=== PATIENT | male | born 1940 | race Caucasian/White ===

== ENCOUNTER 2018-08-16 04:15 | Inpatient (IN) ==
--- NOTE | 2018-08-16 04:30 | ERNOTE ---
Dizziness ER Record Time Seen by Provider: 08/16/18 04:15 Source: patient Exam Limitations: no limitations Immunizations: IMMUNIZATION HX Immunizations Up to Date Yes History of Influenza Vaccine Yes Hx Pneumococcal Vaccination Yes Allergies/Adverse Reactions: Allergies Allergy/AdvReac Type Severity Reaction Status Date / Time No Known Allergies Allergy Verified 08/16/18 04:19 Home Medications: HOME MEDICATIONS Aspirin [Eloise Chewable] 81 mg PO DAILY 01/13/15 [Last Taken Unknown] Lisinopril [Zestril] 2.5 mg PO DAILY 01/13/15 [Last Taken Unknown] Metoprolol Succinate [Toprol Xl] 25 mg PO DAILY 01/13/15 [Last Taken Unknown] Nitroglycerin 0.4 mg SL Q5M PRN 01/13/15 [Last Taken Unknown] Simvastatin [Zocor] 40 mg PO HS 01/13/15 [Last Taken Unknown] Multivitamin [One Daily Essential] 1 each PO DAILY 03/28/16 [Last Taken Unknown] - History of Present Illness Narrative: PAtient woke up in the night with nausea, vomiting and dizziness, felt hot, but no diaphoresis, denies chest pain or shortness of breath He has a history of CAD, had an LA and stent placed in 2007 (no chest pain at that time only 'sweating in face') Date (Duration): 08/16/18 Time (Timing): 02:00 Associated Symptoms: Present: nausea, vomiting. Absent: hearing loss, ringing/roaring in ear, ear pain, headache, weakness Sense of movement: Present: vague Decreased ability to stand/walk:: Present: off balance Usually:: Present: walks w/o assistance Modifying Factors - (Worsens): Reports: changing position, movement of head Review of Systems - Review of Systems Constitutional: Absent: recent illness, fever EYE: Absent: vision changes ENT: Present: no symptoms reported Respiratory: Absent: shortness of breath Cardiology: Absent: chest pain Gastrointestinal/Abdominal: Present: nausea, vomiting. Absent: diarrhea, abdominal pain Musculoskeletal: Absent: back pain Neurological: Absent: headache, weakness, numbness Medical History (Last Reviewed 08/16/18 @ 04:25 by Laly Denton MD) High cholesterol Hypertension Myocardial infarction Surgical History: Surgical History (Last Reviewed 08/16/18 @ 04:25 by Laly Denton MD) History of artificial heart valve Social History: Preferred Language Pashto Smoking Status Former smoker Psych History No pertinent hx Alcohol Use none No Social History Section defined Physical Exam - Physical Exam General Appearance: Present: wd/wn, alert, no apparent distress, obese Head Exam: Present: normal inspection, no evidence of injury Eye Exam: Normal inspection: bilateral, PERRL: bilateral Ears, Nose, Throat: Present: cerumen impaction - bilateral (removed with currette) Neck: Present: normal inspection, nontender, supple Respiratory: Present: no respiratory distress, normal breath sounds, no accessory muscle use, chest nontender, lungs clear Cardiovascular/Chest: Present: regular rate, rhythm, no murmur Gastrointestinal/Abdominal: Present: normal bowel sounds, nontender, nondistended, soft Extremity Exam: Present: no edema Neurological Exam: Present: alert, oriented, normal mood/affect, no motor/sensory deficits, normal cerebellar test. Absent: facial droop, motor weakness Skin Exam: Present: normal color, warm/dry Progress - Results and Orders Patient's Lab Results:: I have reviewed the patient's lab results. - Vital Signs Patient's Vital Signs:: I have reviewed the patient's vital signs. Vital Signs: Vital Signs 08/16/18 04:16 Temperature 36 C Pulse Rate 59 L Respiratory Rate 18 Blood Pressure 138/72 O2 Sat by Pulse Oximetry 94 - EKG EKG #1 EKG: NSR - sinus bradycardia, other - poor R progression over anterior leads, no acute changes, unchanges from 06/2011 EKG read: Interp. by me - X-Ray X-Ray #1 X-Ray: chest - cardiomegalie, no acute changes Interpretation: Interp. by me X-Ray #2 X-Ray: abdomen - no acute changes Interpretation: Reviewed by me - CT/Ultrasound CT/Ultrasound Narrative: CT head: old strokes, no acute findings - Progress/Reassessment Chief Complaint: Dizziness Progress Note-Subjective: 08/16/18 05:31 patient comfortable while laying in bed patient able to sit up with assistance but leaning to left side and not sitting up straight in spite of coaching starts to complain of dizziness again and vomits brownish liquid 08/16/18 07:00 positive gastrocult most likely due to vomiting due to vertigo and not primary p jono discussed possible admission with patient, patient agreed message to Dr Han 08/16/18 07:[address] Han, okay to admit for observation for vertigo and GI bleed, will repeat troponin as history of prior LA without chest pain and draw serial H/Hs Departure Clinical Impression: Vertigo GI bleed Qualifiers: GI bleed type/associated pathology: unspecified gastrointestinal hemorrhage type Qualified Code(s): K92.2 - Gastrointestinal hemorrhage, unspecified - Departure Disposition: Still a patient Condition: Stable
[2018-08-16] MEDS ORDERED: ONDANSETRON HCL/PF 2 MG/ML VIAL IV ONE (04:31)
[2018-08-16 04:36] LABS: Hematocrit 43.2 % (42.0-52.0); Hemoglobin 14.6 gm/dL (13.5-18.0); Mean Cell Volume 101.2 fl (78-100); Mean Corpuscular Hemoglobin 34.2 pg (27-31); Mean Corpuscular Hgb Conc 33.8 g/dl (32-36); Mean Platelet Volume 9.4 fl (8-11.3); Neutrophil # 6.5 K/mm3 (1.3-6.0); Neutrophil % 79.7 % (42-75.0); Platelet Count 188 K/mm3 (150-450); Red Blood Count 4.27 M/mm3 (4.7-6.0); Red Cell Distribution Width 11.9 % (11.5-14.0); White Blood Count 8.2 K/mm3 (4.0-10.5)
[2018-08-16 04:54] LABS: Albumin * 3.6 gm/dl (3.4-5.0); Anion Gap 12.5 mmol/L (6.8-13.8); BUN/Creatinine Ratio 17.4 (9.0-21.6); Bilirubin, Total 0.3 mg/dL (0.0-1.1); Ca. Corrected For Albumin 9.1 mg/dL (8.4-10.2); Calcium * 9.1 mg/dL (7.9-10.9); Carbon Dioxide 28.4 mmol/L (24-32.6); Potassium 3.9 mmol/L (3.4-4.6); Total Protein 6.9 gm/dL (6.2-8.2)
[2018-08-16 04:57] LABS: Troponin I 0.025 ng/mL (0.00-0.10)
[2018-08-16] MEDS ORDERED: NORMAL SALINE 1,000 ML IV PRN ×2 (07:46→09:15)
[2018-08-16] MEDS ORDERED: PANTOPRAZOLE SODIUM 40 MG in NORMAL SALINE 100 ML IV SCH (08:00)
[2018-08-16] MEDS ORDERED: NORMAL SALINE 1,000 ML IV SCH (08:15)
[2018-08-16 11:01] LABS: Hematocrit 43.5 % (42.0-52.0); Hemoglobin 14.6 gm/dL (13.5-18.0); Mean Cell Volume 102.6 fl (78-100); Mean Corpuscular Hemoglobin 34.4 pg (27-31); Mean Corpuscular Hgb Conc 33.6 g/dl (32-36); Mean Platelet Volume 9.4 fl (8-11.3); Neutrophil # 7.4 K/mm3 (1.3-6.0); Neutrophil % 88.1 % (42-75.0); Platelet Count 151 K/mm3 (150-450); Red Blood Count 4.24 M/mm3 (4.7-6.0); Red Cell Distribution Width 11.9 % (11.5-14.0); White Blood Count 8.4 K/mm3 (4.0-10.5)
[2018-08-16] MEDS: CLOPIDOGREL BISULFATE 75 MG TABLET PO SCH (15:34)
[2018-08-16] MEDS: ONDANSETRON HCL/PF 2 MG/ML VIAL IV SCH ×3 (16:31→22:26)
--- NOTE | 2018-08-16 17:34 | HP ---
Chief Complaint - Chief Complaint Date of Service: 08/16/18 Time of Service: 17:11 Chief Complaint: Vertigo History of Present Illness: 77-year-old man woke to her 2:30 this morning with dizziness. Any small movement made it worse. It was accompanied with nausea and vomiting. It got worse. They called an ambulance, he was brought here for further evaluation. Sequential troponins were normal. He had a previous MD with stent placement, and the only symptom at that time was diaphoresis. He also has a bovine heart valve in place. At the time of admission he was already on low-dose aspirin every day. In the emergency room, he had an occult blood positive stool. The stool was not black and there was no obvious blood in the stool. When he vomited once in the emergency room, the vomitus was brown. According to the emergency room doctor, it was not classic hematemesis. His brain CT was normal. There was also definite signs of left-sided facial weakness and his usual left-sided body weakness was worse. All of these reasons, we obtained an MRI of the brain today. It showed an ischemic cerebellar infarct. At the present time his vertigo is about the same. His nausea is improved with the ondansetron we are giving him. He has no chest pain. Prior to this episode, he is never had vertigo. He is extremely hard of hearing in each year. Medical History (Last Updated 08/16/18 @ 08:49 by Naomy Chu RN) High cholesterol Hypertension Myocardial infarction Onset Date: ~2007 Surgical History: Surgical History (Last Updated 08/16/18 @ 17:16 by Roverto Castelan MD) History of artificial heart valve (Acute) Onset Date: ~2015 H/O heart artery stent Onset Date: ~2007 Hx of appendectomy Onset Date: ~1977 Family History: Family History (Last Updated 08/16/18 @ 08:48 by Naomy Chu RN) Father Emphysema of lung Mother Heart disease Social History: Patient Lives/Resources Home Utilized Preferred Language Colombian Do you have any mandaeism or Yes: Presbretarian cultural preference? Smoking Status Former smoker Have you smoked in the past 12 No months Psych History No pertinent hx Alcohol Use none No Social History Section defined Review Of Systems (GEN) - Review of Systems Generalized/Overall Review: Present: Weakness, Malaise EENTM: Present: Other - He has a white spot on the right face near his anabaptist area. The new growth within the last month or so behind his left ear. He is markedly hard of hearing. He does not wear hearing aids. Respiratory: Absent: Cough, Shortness of Breath, Orthopnea Cardiac: Absent: Chest Pain, Palpitations Abdominal: Present: Nausea, Vomiting, Other - 1 positive Hemoccult stool in the emergency room. Genitourinary: Absent: Burning, Urgency, Frequency Musculoskeletal: Present: Joint Pain - All joints, but especially both knees. No historical indicators of claudication., Back Pain Neurological: Present: Weakness - Left face and Left side. Vertigo. Homonymous hemianopsia (towards the left). Skin: Present: Lesions - Growth behind right ear, Change in Color - White area right anabaptist Endocrine: Present: Intolerance to Cold, Intolerance to Heat Misc: All systems neg except as marked - He states he had a carotid ultrasound perhaps 2 months ago at the [facility]. He does not know the results. His last echocardiogram was quite some time ago. Immunizations: IMMUNIZATION HX Immunizations Up to Date Yes History of Influenza Vaccine Yes Hx Pneumococcal Vaccination Yes Allergies/Adverse Reactions: Allergies Allergy/AdvReac Type Severity Reaction Status Date / Time No Known Allergies Allergy Verified 08/16/18 08:50 Home Medications: HOME MEDICATIONS Aspirin [Eloise Chewable] 81 mg PO DAILY 01/13/15 [Last Taken Unknown] Lisinopril [Zestril] 2.5 mg PO DAILY 01/13/15 [Last Taken Unknown] Metoprolol Succinate [Toprol Xl] 25 mg PO DAILY 01/13/15 [Last Taken Unknown] Nitroglycerin 0.4 mg SL Q5M PRN 01/13/15 [Last Taken Unknown] Simvastatin [Zocor] 40 mg PO HS 01/13/15 [Last Taken Unknown] Multivitamin [One Daily Essential] 1 each PO DAILY 03/28/16 [Last Taken Unknown] Isosorbide Dinitrate 30 mg PO DAILY 08/16/18 [Last Taken Unknown] Exam - Exam Vital Signs: Vital Signs - Last Taken Temp 36.6 C 08/16/18 13:45 Pulse 65 08/16/18 13:45 Resp 18 08/16/18 13:45 BP 156/86 H 08/16/18 13:45 Pulse Ox 95 08/16/18 13:45 Constitutional: Present: Alert, Oriented x3, Cooperative, Well developed, Well nourished ENT Exam: Present: normal ENT inspection, hard of hearing Eye Exam: bilateral eye: normal inspection, PERRL, EOMI, other - homonymous hemianopsia Neck: Present: non-tender, normal inspection. Absent: lymphadenopathy (R), lymphadenopathy (L), thyromegaly Back Exam: Present: normal inspection, no CVA tenderness, no vertebral tenderness Breasts: Present: Exam deferred Respiratory: Present: lungs clear, no respiratory distress Cardiovascular/Chest: Present: regular rate, rhythm, no edema, no gallop, no JVD, no murmur - Soft systolic Peripheral Pulses: carotid (R): 1+ - no bruit, carotid (L): 1+ - no bruit, femoral (R): 1+, femoral (L): 1+ Abdomen: Present: Normal bowel sounds, soft, nontender, nondistended, no hepatospenomegaly, no masses /Rectal: Present: Exam deferred Extremity: Present: normal range of motion, normal inspection, no pedal edema Skin Exam: Present: normal color, warm/dry, no cyanosis, other - 1 cm brownish growth behind right ear. Neurologic: Present: alert, normal mood/affect, oriented x 3, abnormal cerebellar tests, abnormal gait, facial droop, motor weakness Appearance: Present: appropriate appearance, appropriate insight, neat Eye contact: Present: cooperative, good eye contact, other - Somewhat slurred speech Thoughts: Present: normal thought pattern. Absent: incoherent Diagnostic Studies: Abnormal Lab Results 08/16/18 08/16/18 08/16/18 Range/Units 04:30 04:30 05:30 RBC 4.27 L (4.7-6.0) M/mm3 MCV 101.2 H (78-100) fl MCH 34.2 H (27-31) pg Neutrophils % 79.7 H (42-75.0) % Lymphocytes % 10.5 L (20-51) % Neutrophils # 6.5 H (1.3-6.0) K/mm3 Lymphocytes # 0.86 L (1.5-3.5) k/mm3 Random Glucose 201 H (70-110) mg/dL ALT 16 L (19-67) U/L Gastric Occult Blood Positive H 08/16/18 Range/Units 10:58 RBC 4.24 L (4.7-6.0) M/mm3 MCV 102.6 H (78-100) fl MCH 34.4 H (27-31) pg Neutrophils % 88.1 H (42-75.0) % Lymphocytes % 5.6 L (20-51) % Neutrophils # 7.4 H (1.3-6.0) K/mm3 Lymphocytes # 0.47 L (1.5-3.5) k/mm3 Random Glucose (70-110) mg/dL ALT (19-67) U/L Gastric Occult Blood Laboratory Results WBC 8.4 K/mm3 (4.0-10.5) 08/16/18 10:58 RBC 4.24 M/mm3 (4.7-6.0) L 08/16/18 10:58 Hgb 14.6 gm/dL (13.5-18.0) 08/16/18 10:58 Hct 43.5 % (42.0-52.0) 08/16/18 10:58 MCV 102.6 fl (78-100) H 08/16/18 10:58 MCH 34.4 pg (27-31) H 08/16/18 10:58 MCHC 33.6 g/dl (32-36) 08/16/18 10:58 RDW 11.9 % (11.5-14.0) 08/16/18 10:58 Plt Count 151 K/mm3 (150-450) 08/16/18 10:58 MPV 9.4 fl (8-11.3) 08/16/18 10:58 Immature Gran % (Auto) 0.20 % (0.001-0.429) 08/16/18 10:58 Immature Gran # (Auto) 0.02 K/mm3 (0.000-0.0310) 08/16/18 10:58 Neutrophils % 88.1 % (42-75.0) H 08/16/18 10:58 Lymphocytes % 5.6 % (20-51) L 08/16/18 10:58 Monocytes % 5.6 % (0.0-9) 08/16/18 10:58 Eosinophils % 0.1 % (0.0-3.0) 08/16/18 10:58 Basophils % 0.4 % (0.0-1.0) 08/16/18 10:58 Nucleated RBC % 0.0 k/mm3 (0-1) 08/16/18 10:58 Neutrophils # 7.4 K/mm3 (1.3-6.0) H 08/16/18 10:58 Lymphocytes # 0.47 k/mm3 (1.5-3.5) L 08/16/18 10:58 Monocytes # 0.5 k/mm3 (0.0-1.0) 08/16/18 10:58 Eosinophils # 0.0 k/mm3 (0.0-0.7) 08/16/18 10:58 Absolute Basophils 0.0 k/mm3 (0.0-0.1) 08/16/18 10:58 Sodium 140 mmol/L (132-142) 08/16/18 04:30 Plasma Sodium 142 mmol/L (130-142) 08/16/18 04:30 Potassium 3.9 mmol/L (3.4-4.6) 08/16/18 04:30 Chloride 103 mmol/L (97-106) 08/16/18 04:30 Carbon Dioxide 28.4 mmol/L (24-32.6) 08/16/18 04:30 Anion Gap 12.5 mmol/L (6.8-13.8) 08/16/18 04:30 BUN 15 mg/dL (6-23) 08/16/18 04:30 Creatinine 0.86 mg/dL (0.4-1.4) 08/16/18 04:30 Est GFR (Non-Af Amer) 91 mL/min (60-130) 08/16/18 04:30 BUN/Creatinine Ratio 17.4 (9.0-21.6) 08/16/18 04:30 Random Glucose 201 mg/dL (70-110) H 08/16/18 04:30 Calcium 9.1 mg/dL (7.9-10.9) 08/16/18 04:30 Calcium Adj for Albumin 9.1 mg/dL (8.4-10.2) 08/16/18 04:30 Total Bilirubin 0.3 mg/dL (0.0-1.1) 08/16/18 04:30 AST 19 U/L (0-48) 08/16/18 04:30 ALT 16 U/L (19-67) L 08/16/18 04:30 Alkaline Phosphatase 59 U/L (50-170) 08/16/18 04:30 Troponin I 0.027 ng/mL (0.00-0.10) 08/16/18 10:58 Total Protein 6.9 gm/dL (6.2-8.2) 08/16/18 04:30 Albumin 3.6 gm/dl (3.4-5.0) 08/16/18 04:30 Gastric Occult Blood Positive H 08/16/18 05:30 Assessment/Plan - Narrative Narrative: No gross blood from GI tract. Hemoccult positive blood in the emergency room. He had a fairly recent carotid ultrasound at the [facility]. Tomorrow morning we will obtain the report. Looking for blood clot in the heart, we will do an echocardiogram tomorrow. Given the acute stroke, we will monitor him carefully in the hospital, looking for possible deterioration. This would be either from an extension of the stroke, or for edema surrounding the area stroke. Physical therapy will continue in the form of stroke rehabilitation. We will switch his aspirin to Plavix, because on low-dose aspirin he had this stroke regardless. We will repeat blood work in the morning. We will give him symptomatic treatment for the nausea and vomiting. The entire situation was discussed tonight and then with his . Questions were answered. They expressed understanding. When he is out of the hospital, he will need referral to clinical transplant coordinator for the lesion behind his right ear. When he is sufficiently recovered, he will need an MRA of the vertebrobasilar system. - Assessment/Plan (1) Vertigo Problem: Acute (2) Acute arterial ischemic stroke, vertebrobasilar, cerebellar Problem: Acute (3) Vomiting Problem: Acute Qualifiers: Vomiting type: unspecified Vomiting Intractability: non-intractable Nausea presence: with nausea Qualified Code(s): R11.2 - Nausea with vomiting, unspecified (4) GI bleed Problem: Acute Qualifiers: GI bleed type/associated pathology: unspecified gastrointestinal hemorrhage type Qualified Code(s): K92.2 - Gastrointestinal hemorrhage, unspecified (5) Benign essential hypertension Problem: Chronic (6) Coronary artery disease Problem: Chronic Qualifiers: Coronary Disease-Associated Artery/Lesion type: unspecified vessel or lesion type [place] vs. transplanted heart: [place] heart Associated angina: without angina Qualified Code(s): I25.10 - Atherosclerotic heart disease of [place] coronary artery without angina pectoris (7) Hyperlipidemia type II Problem: Chronic (8) Lesion of external ear Problem: Acute (9) History of artificial heart valve Problem: Acute
--- NOTE | 2018-08-16 17:35 | PN ---
Laurie Note - Interim Date: 08/16/18 Time: 17:34 Narrative: 08/16/18 17:34 We discussed VTE prophylaxis with him and his . Because of the Hemoccult positive stool in the ER, we chose blood thinning methods to decrease the chance of blood clot.
[2018-08-16] MEDS: TAMSULOSIN HCL 0.4 MG CAP.SR.24H PO SCH (22:25)
[2018-08-17] MEDS: ONDANSETRON HCL/PF 2 MG/ML VIAL IV SCH ×6 (02:47→23:49)
[2018-08-17 05:33] LABS: Hematocrit 40.3 % (42.0-52.0); Hemoglobin 13.6 gm/dL (13.5-18.0); Mean Cell Volume 101.5 fl (78-100); Mean Corpuscular Hemoglobin 34.3 pg (27-31); Mean Corpuscular Hgb Conc 33.7 g/dl (32-36); Mean Platelet Volume 9.4 fl (8-11.3); Neutrophil # 13.1 K/mm3 (1.3-6.0); Neutrophil % 86.4 % (42-75.0); Platelet Count 163 K/mm3 (150-450); Red Blood Count 3.97 M/mm3 (4.7-6.0); Red Cell Distribution Width 11.9 % (11.5-14.0); White Blood Count 15.2 K/mm3 (4.0-10.5)
[2018-08-17 05:42] LABS: Albumin * 3.2 gm/dl (3.4-5.0); Anion Gap 11.9 mmol/L (6.8-13.8); BUN/Creatinine Ratio 13.1 (9.0-21.6); Ca. Corrected For Albumin 8.9 mg/dL (8.4-10.2); Calcium * 8.6 mg/dL (7.9-10.9); Carbon Dioxide 27.9 mmol/L (24-32.6); Potassium 3.8 mmol/L (3.4-4.6); Total Protein 6.2 gm/dL (6.2-8.2)
[2018-08-17] MEDS ORDERED: NORMAL SALINE 1,000 ML IV SCH (07:15)
--- NOTE | 2018-08-17 07:33 | PN ---
Subjective - Date and Time Seen Date: 08/17/18 Time: 07:22 Subjective Narrative: Patient reports no change. Nurse reports that staff observed that he is definitely weaker on the left side with more facial droop. He is having more trouble standing or moving around. Last evening, rough lung sounds were noticed. The on-call doctor stopped his IV. I/O not complete on chart. No fever has been noted. Somewhat elevated white count at about 15,000 was noted this morning. Staff observed that his speech is more difficult to understand. Objective - Review of Systems Generalized/Overall Review: Reports: Weakness EENTM: Denies: Eye Pain, Blurred Vision Respiratory: Reports: Cough. Denies: Orthopnea Cardiac: Denies: Chest Pain, Edema Abdominal: Reports: Nausea. Denies: Vomiting, Melena, Bright blood from rectum Genitourinary Symptoms: Denies: Burning, Urgency Musculoskeletal Complaints: Reports: Joint Pain. Denies: Back Pain Neurological: Reports: Weakness, Pre-existing Deficit. Denies: Headache Skin: Denies: Dryness, Rash Endocrine: Reports: Intolerance to Cold, Intolerance to Heat Misc: All systems neg except as marked - Vitals Vitals: Last Vital Signs Temp 37.2 C 08/17/18 04:00 Pulse 90 08/17/18 04:00 Resp 18 08/17/18 04:00 BP 156/80 H 08/17/18 04:00 Pulse Ox 90 L 08/17/18 04:00 - Abnormal Lab Findings Abnormal Lab Findings: Abnormal Lab Results 08/16/18 08/17/18 08/17/18 Range/Units 10:58 05:10 05:10 WBC 15.2 H D (4.0-10.5) K/mm3 RBC 4.24 L 3.97 L (4.7-6.0) M/mm3 Hct 40.3 L (42.0-52.0) % MCV 102.6 H 101.5 H (78-100) fl MCH 34.4 H 34.3 H (27-31) pg Immature Gran # (Auto) 0.06 H (0.000-0.0310) K/mm3 Neutrophils % 88.1 H 86.4 H (42-75.0) % Lymphocytes % 5.6 L 5.0 L (20-51) % Neutrophils # 7.4 H 13.1 H (1.3-6.0) K/mm3 Lymphocytes # 0.47 L 0.76 L (1.5-3.5) k/mm3 Monocytes # 1.2 H (0.0-1.0) k/mm3 Random Glucose 144 H (70-110) mg/dL ALT 12 L (19-67) U/L Albumin 3.2 L (3.4-5.0) gm/dl - Exam Constitutional: Present: Alert, Oriented x3, Cooperative, Well developed, Well nourished, No distress ENT Exam: Present: normal ENT inspection. Absent: hearing grossly normal Neck: Present: normal inspection. Absent: lymphadenopathy (R), lymphadenopathy (L), thyromegaly Breasts: Present: Exam deferred Respiratory: Present: no respiratory distress, rhonchi. Absent: rales Cardiovascular/Chest: Present: regular rate, rhythm, no gallop, no JVD, no m urmur Abdomen: Present: soft, nontender, nondistended, no hepatospenomegaly, no masses. Absent: tender /Rectal: Present: Exam deferred Extremity: Present: non-tender, normal inspection Skin Exam: Present: normal color, warm/dry, no cyanosis Lymphatic: Present: no adenopathy Neurologic: Present: alert, normal mood/affect, oriented x 3, abnormal gait, facial droop, motor weakness. Absent: normal cerebellar test Appearance: Present: appropriate appearance, neat Eye contact: Present: cooperative, good eye contact. Absent: normal speech Thoughts: Present: normal thought pattern. Absent: incoherent Assessment/Plan Plan Narrative: He is by staff report worse. He now has abnormal lung sounds plus his speech is harder to understand, plus his left side is weaker, and he is having more difficulty with standing or moving. To my exam I am not entirely convinced that his left side is weaker. He does have facial droop and his left upper eyelid comes to the level of his inferior pupil. I did not get him up to walk him this morning. I am concerned that his stroke may be producing increasing brain edema. Her that reason we are going to do an urgent CT this morning. The thought of the on-call doctor last night was that he had too much fluid on board. I heard no rales this morning but many rhonchi. He has been vomiting, so I'm concerned about aspiration pneumonia. Plus his white blood count is increased over yesterday's to about 15,000. There is a slight left shift. We will resume his IV at a rate of 10 ML's per hour pending the results of his chest x-ray. We are looking either pulmonary edema or pneumonia or both. We will also do a BNP this morning. We will do a CBC and a BMP tomorrow morning. We will continue with physical therapy and current medications. Depending on his course today, we may need to transfer him to a higher level of care., Providing he and his are willing to do that. Prognosis is guarded at the present time. - Problems/Diagnosis (1) Vertigo Problem: Acute (2) Acute arterial ischemic stroke, vertebrobasilar, cerebellar Problem: Acute (3) Vomiting Problem: Acute Qualifiers: Vomiting type: unspecified Vomiting Intractability: non-intractable Nausea presence: with nausea Qualified Code(s): R11.2 - Nausea with vomiting, unspecified (4) GI bleed Problem: Acute Qualifiers: GI bleed type/associated pathology: unspecified gastrointestinal hemorrhage type Qualified Code(s): K92.2 - Gastrointestinal hemorrhage, unspecified (5) Benign essential hypertension Problem: Chronic (6) Coronary artery disease Problem: Chronic Qualifiers: Coronary Disease-Associated Artery/Lesion type: unspecified vessel or lesion type [place] vs. transplanted heart: [place] heart Associated angina: without angina Qualified Code(s): I25.10 - Atherosclerotic heart disease of [place] coronary artery without angina pectoris (7) Hyperlipidemia type II Problem: Chronic (8) Lesion of external ear Problem: Acute (9) History of artificial heart valve Problem: Acute
--- NOTE | 2018-08-17 08:20 | PN ---
Progess Note - Interim Date: 08/17/18 Time: 08:18 Narrative: 08/17/18 08:18 I read the CXR just now. Radiologist has not. Left lung opacity concerning for pneumonia. BNP is elevated most likely due to chronic heart disease.
--- NOTE | 2018-08-17 08:25 | PN ---
Progess Note - Interim Date: 08/17/18 Time: 08:24 Narrative: 08/17/18 08:[address] head, stable acute infarct anterior left cerebellum, no signs of edema
--- NOTE | 2018-08-17 08:54 | PN ---
Progess Note - Interim Date: 08/17/18 Time: 08:53 Narrative: 08/17/18 08:53 Radiologist's interp of CXR is consistent with early aspiration pneumonia. Have started zosyn.
[2018-08-17] MEDS: SACCHAROMYCES BOULARDII 250 MG CAPSULE PO SCH ×2 (09:11→20:27)
[2018-08-17] MEDS: PIPERACILLIN SODIUM/TAZOBACTAM 3.375 GM in DEXTROSE 5 % IN WATER 100 ML IV SCH ×6 (09:11→23:50)
[2018-08-17] MEDS: PANTOPRAZOLE SODIUM 40 MG in NORMAL SALINE 100 ML IV SCH (09:12)
[2018-08-17] MEDS: CLOPIDOGREL BISULFATE 75 MG TABLET PO SCH (09:12)
[2018-08-17] MEDS ORDERED: NORMAL SALINE 1,000 ML IV PRN (09:15)
[2018-08-17] MEDS: TAMSULOSIN HCL 0.4 MG CAP.SR.24H PO SCH (16:59)
[2018-08-17] MEDS ORDERED: TAMSULOSIN HCL 0.4 MG CAP.SR.24H PO SCH (21:50)
[2018-08-18] MEDS: ONDANSETRON HCL/PF 2 MG/ML VIAL IV SCH ×6 (03:54→23:50)
[2018-08-18 05:25] LABS: Hematocrit 38.2 % (42.0-52.0); Mean Cell Volume 101.1 fl (78-100); Mean Corpuscular Hemoglobin 34.4 pg (27-31); Mean Platelet Volume 9.9 fl (8-11.3); Neutrophil # 6.1 K/mm3 (1.3-6.0); Neutrophil % 75.9 % (42-75.0); Platelet Count 158 K/mm3 (150-450); Red Blood Count 3.78 M/mm3 (4.7-6.0); Red Cell Distribution Width 11.9 % (11.5-14.0)
[2018-08-18 05:30] LABS: Anion Gap 10.9 mmol/L (6.8-13.8); BUN/Creatinine Ratio 8.5 (9.0-21.6); Calcium * 8.7 mg/dL (7.9-10.9); Carbon Dioxide 28.5 mmol/L (24-32.6); Estimated Creat Clear 69.4; Potassium 3.4 mmol/L (3.4-4.6)
[2018-08-18] MEDS: CLOPIDOGREL BISULFATE 75 MG TABLET PO SCH (08:16)
[2018-08-18] MEDS: SACCHAROMYCES BOULARDII 250 MG CAPSULE PO SCH ×2 (08:16→20:32)
[2018-08-18] MEDS: PIPERACILLIN SODIUM/TAZOBACTAM 3.375 GM in DEXTROSE 5 % IN WATER 100 ML IV SCH ×6 (08:31→23:59)
--- NOTE | 2018-08-18 09:44 | PN ---
Subjective - Date and Time Seen Date: 08/18/18 Time: 09:34 Subjective Narrative: Patient reports improvement. Nurse reports his weakness is about the same. With physical therapy this morning he was able to walk 3 steps forward and 3 steps backward without feeling like he was going to fall His cough has improved. He has no fever. His O2 sats are better than yesterday. Chest x-ray showed early pneumonia on the left side and I suspect aspiration pneumonia. Although his BNP was elevated his timings have not and do not support a diagnosis of breathing problems related to. His white blood count has returned to normal with the help of her working to see if he will qualify for inpatient rehabilitation in [place]. I discussed this at length with Iftikhar. He understands and thinks that inpatient rehabilitation would be a good idea. His was not present at the time of my visit this morning. Objective - Review of Systems Generalized/Overall Review: Reports: Weakness, Malaise EENTM: Reports: Other - No sore throat. Denies: Eye Pain, Blurred Vision, Ear Pain, Throat Pain Respiratory: Reports: Cough. Denies: Shortness of Breath, Orthopnea, Wheezing Cardiac: Denies: Chest Pain, Edema Abdominal: Denies: Nausea, Vomiting, Abdominal Pain Genitourinary Symptoms: Reports: Frequency - He had urinary retention yesterday, so we placed a Fowler catheter. He feels much better with the Fowler catheter in place.. Denies: Hematuria Musculoskeletal Complaints: Reports: Joint Pain, Back Pain Neurological: Reports: Weakness, Pre-existing Deficit, Other - Speech has improved but is still somewhat difficult to understand. Skin: Denies: Dryness, Lesions, Rash Endocrine: Reports: Intolerance to Cold, Intolerance to Heat Misc: All systems neg except as marked - Vitals Vitals: Last Vital Signs Temp 36.5 C 08/18/18 06:54 Pulse 74 08/18/18 06:54 Resp 18 08/18/18 06:54 BP 131/74 08/18/18 06:54 Pulse Ox 93 08/18/18 06:54 - Abnormal Lab Findings Abnormal Lab Findings: Abnormal Lab Results 08/18/18 08/18/18 Range/Units 05:00 05:00 RBC 3.78 L (4.7-6.0) M/mm3 Hgb 13.0 L (13.5-18.0) gm/dL Hct 38.2 L (42.0-52.0) % MCV 101.1 H (78-100) fl MCH 34.4 H (27-31) pg Neutrophils % 75.9 H (42-75.0) % Lymphocytes % 11.3 L (20-51) % Monocytes % 10.5 H (0.0-9) % Neutrophils # 6.1 H (1.3-6.0) K/mm3 Lymphocytes # 0.91 L (1.5-3.5) k/mm3 BUN/Creatinine Ratio 8.5 L (9.0-21.6) Random Glucose 114 H (70-110) mg/dL - Exam Constitutional: Present: Alert, Oriented x3, Cooperative, Well developed, Well nourished, No distress ENT Exam: Present: normal ENT inspection, hearing grossly normal Neck: Present: normal inspection, other - No JVD. Absent: thyromegaly Respiratory: Present: rhonchi. Absent: rales, wheezing Cardiovascular/Chest: Present: normal peripheral pulses, regular rate, rhythm, no chest tenderness, no gallop, no murmur Abdomen: Present: Normal bowel sounds, soft, nontender, nondistended, no hepatospenomegaly /Rectal: Present: Exam deferred Extremity: Present: normal inspection, no calf tenderness Skin Exam: Present: normal color, warm/dry Lymphatic: Present: no adenopathy Neurologic: Present: abnormal gait, facial droop, motor weakness Appearance: Present: appropriate appearance, appropriate insight, neat Eye contact: Present: cooperative, good eye contact. Absent: normal speech Thoughts: Present: normal thought pattern, normal mood /affect Cauti Physician Documentation - Urinary Catheter Management Urethral (Fowler) Date of Insertion: 08/17/18 Time of Insertion: 14:40 Assessment/Plan Plan Narrative: We will continue the present treatment including IV antibiotics. He has not been vomiting for the last 24 hours or so. Dietitian recommends mechanical soft diet, however the patient wants to try a regular diet. We acquiesced to his wishes. Doing well enough that he doesn't need any lab work again at the present time. He has really had nothing more in the way of bowel movements, so the chance of him having significant bleeding from his lower GI tract or upper GI tract is minimal. For this reason we will now start Lovenox prophylactically. We will continue PT here. We will continue to work on finding rehabilitation at a higher level of care. - Problems/Diagnosis (1) Vertigo Problem: Acute (2) Acute arterial ischemic stroke, vertebrobasilar, cerebellar Problem: Acute (3) Vomiting Problem: Acute Qualifiers: Vomiting type: unspecified Vomiting Intractability: non-intractable Nausea presence: with nausea Qualified Code(s): R11.2 - Nausea with vomiting, unspecified (4) GI bleed Problem: Acute Qualifiers: GI bleed type/associated pathology: unspecified gastrointestinal hemorrhage type Qualified Code(s): K92.2 - Gastrointestinal hemorrhage, unspecified (5) Benign essential hypertension Problem: Chronic (6) Coronary artery disease Problem: Chronic Qualifiers: Coronary Disease-Associated Artery/Lesion type: unspecified vessel or lesion type Craig vs. transplanted heart: [place]' heart Associated angina: without angina Qualified Code(s): I25.10 - Atherosclerotic heart disease of [place] coronary artery without angina pectoris (7) Hyperlipidemia type II Problem: Chronic (8) Lesion of external ear Problem: Acute (9) History of artificial heart valve Problem: Acute
--- NOTE | 2018-08-18 10:25 | ECHO ---
This report is available in the EMR
[2018-08-18] MEDS: PANTOPRAZOLE SODIUM 40 MG in NORMAL SALINE 100 ML IV SCH (10:27)
[2018-08-18] MEDS: ENOXAPARIN SODIUM 40 MG/0.4 ML SYRG SC SCH (11:21)
[2018-08-18] MEDS: TAMSULOSIN HCL 0.4 MG CAP.SR.24H PO SCH (18:46)
[2018-08-19] MEDS: ONDANSETRON HCL/PF 2 MG/ML VIAL IV SCH ×2 (04:34→07:13)
--- NOTE | 2018-08-19 06:34 | DS ---
Transfer Discharge Summary - Diagnosis(s)/Problems (1) Vertigo Problem: Acute (2) Acute arterial ischemic stroke, vertebrobasilar, cerebellar Problem: Acute (3) Vomiting Problem: Acute (4) GI bleed Problem: Acute (5) Benign essential hypertension Problem: Chronic (6) Coronary artery disease Problem: Chronic (7) Hyperlipidemia type II Problem: Chronic (8) Lesion of external ear Problem: Acute (9) History of artificial heart valve Problem: Chronic (10) History of CVA (cerebrovascular accident) Problem: Chronic - Course Description of Stay: At admission this 77-year-old gentleman was given fluids IV and clear liquids for diet. He was given ondansetron IV for nausea and vomiting. For his the end of the day after admission he was still somewhat nauseated but was not vomiting. The next day he was not nauseated and his vertigo had essentially disappeared. 2 days after admission he developed rhonchi in both sides of the lungs, slight decrease in his O2 sat, and an increase in breathing effort. He also had a white blood cell count elevation to about 15,000. He was generally doing worse. Looking for edema of the brain we did a CT scan which only showed the already known infarct. We also did a chest x-ray, and started him on Zosyn IV for presumed aspiration pneumonia. When the pressures became available, I read the chest x-ray, and it was consistent with left-sided pneumonia. In about 24 hours the white blood count returned to normal, and his general condition improved. Examination he had left-sided weakness and left-sided facial droop. There was some thought that he had worsening of that on admission, but it is more reasonable that it was due to a previous stroke and not this one. Yesterday he wanted to have a regular diet which we provided and which cause no problems. He continued to have problems with speech standing and ambulation. He would benefit from inpatient repair and which is more intense, so yesterday I made arrangements with Dr. Thacker for admission to inpatient rehabilitation in [place]. The patient understands and is willing to go. Diet regular. Up with help. Need for PT/OT/SPEECH. Procedures Performed: none - Medications Medications: Active Medications Clopidogrel Bisulfate (Plavix) 75 mg PO DAILY [facility] Stop: 09/15/18 14:16 Last Admin: 08/18/18 08:16 Dose: 75 mg Documented by: Enoxaparin Sodium (Lovenox) 40 mg SC Q24H [facility] Stop: 09/17/18 09:46 Last Admin: 08/18/18 11:21 Dose: 40 mg Documented by: Pantoprazole Sodium 40 mg/ (Sodium Chloride) 100 mls @ 400 mls/hr IV Q24H [facility] Stop: 09/16/18 09:01 Last Infusion: 08/18/18 10:42 Dose: Infused Documented by: Piperacillin Sod/Tazobactam (Sod 3.375 gm/ Dextrose/Water) 100 mls @ 25 mls/hr IV Q8H [facility]; Protocol Stop: 09/16/18 08:31 Last Infusion: 08/19/18 03:59 Dose: Infused Documented by: Sodium Chloride (Sodium Chloride 0.9%) 1,000 mls @ 40 mls/hr IV .Q24H PRN PRN Reason: HYDRATION Stop: 09/16/18 07:16 Last Admin: 08/18/18 11:10 Dose: 40 mls/hr Documented by: Ondansetron HCl (Zofran) 4 mg IV Q4H [facility] Stop: 09/15/18 15:16 Last Admin: 08/19/18 04:34 Dose: 4 mg Documented by: Saccharomyces Boulardii (Florastor) 250 mg PO BID [facility] Stop: 09/16/18 09:01 Last Admin: 08/18/18 20:32 Dose: 250 mg Documented by: Tamsulosin HCl (Flomax) 0.4 mg PO DAILY@1800 [facility] Stop: 09/15/18 22:02 Last Admin: 08/18/18 18:46 Dose: 0.4 mg Documented by: Discontinued Medications Pantoprazole Sodium 40 mg/ (Sodium Chloride) 100 mls @ 400 mls/hr IV Q24H [facility] Stop: 09/15/18 08:01 Last Infusion: 08/16/18 09:50 Dose: Infused Documented by: Sodium Chloride (Sodium Chloride 0.9%) 1,000 mls @ 100 mls/hr IV .Q10H [facility] Stop: 09/15/18 08:16 Last Admin: 08/16/18 09:35 Dose: Not Given Documented by: Sodium Chloride (Sodium Chloride 0.9%) 1,000 mls @ 100 mls/hr IV .Q10H PRN PRN Reason: HYDRATION Stop: 09/15/18 08:16 Last Infusion: 08/16/18 18:05 Dose: Infused Documented by: Sodium Chloride (Sodium Chloride 0.9%) 1,000 mls @ 40 mls/hr IV .Q24H [facility] Stop: 09/16/18 07:16 Last Admin: 08/17/18 07:19 Dose: 10 mls/hr Documented by: Ondansetron HCl (Zofran) 4 mg IV ONCE ONE Stop: 08/16/18 04:32 Last Admin: 08/16/18 04:34 Dose: 4 mg Documented by: - Disposition Disposition: Inpatient Rehab Facility Condition: Stable Discharge Date: 08/19/18 Discharge Time: 07:40
--- NOTE | 2018-08-19 06:38 | PN ---
Progess Note - Interim Date: 08/19/18 Time: 06:38 Narrative: 08/19/18 06:38 Prognosis is fair.
[2018-08-19] MEDS: PANTOPRAZOLE SODIUM 40 MG in NORMAL SALINE 100 ML IV SCH (08:13)
[2018-08-19] MEDS: CLOPIDOGREL BISULFATE 75 MG TABLET PO SCH (08:41)
[2018-08-19] MEDS: SACCHAROMYCES BOULARDII 250 MG CAPSULE PO SCH (08:41)
[2018-08-19] MEDS: ENOXAPARIN SODIUM 40 MG/0.4 ML SYRG SC SCH (10:08)
[2018-08-19 10:31] VITALS: BP 139/73
== END 2018-08-19 10:45 | disposition short-term general hospital (02) | DRG 64 ==
LOC: ER 04:15 → MS 04:15
PROVIDERS: ADMIT Allergy & Immunology; ATTEND Allergy & Immunology
DX: R11.2 Nausea with vomiting, unspecified; I25.10 Atherosclerotic heart disease of native coronary artery without angina pectoris; K92.1 Melena; I63.542 Cerebral infarction due to unspecified occlusion or stenosis of left cerebellar artery; R42 Dizziness and giddiness; E78.49 Other hyperlipidemia; K92.2 Gastrointestinal hemorrhage, unspecified; G81.94 Hemiplegia, unspecified affecting left nondominant side; Z87.891 Personal history of nicotine dependence; J69.0 Pneumonitis due to inhalation of food and vomit; L98.9 Disorder of the skin and subcutaneous tissue, unspecified; I10 Essential (primary) hypertension; Z95.2 Presence of prosthetic heart valve
CPT/HCPCS: 36415; 70450; 70553; 71010; 71045; 74019; 74020; 80048; 80053; 82272; 83519; 83880; 84484; 85025; 92507; 92522; 93005; 93306; 96361; 96374; 97110; 97116; 97162; 97165; 97530; 97535; 99285; A9576; J2405

== ENCOUNTER 2019-02-11 17:07 | Observation (INO) ==
[2019-02-11 17:54] LABS: Hematocrit 36.8 % (42.0-52.0); Hemoglobin 12.3 gm/dL (13.5-18.0); Mean Cell Volume 102.8 fl (78-100); Mean Corpuscular Hemoglobin 34.4 pg (27-31); Mean Corpuscular Hgb Conc 33.4 g/dl (32-36); Mean Platelet Volume 9.7 fl (8-11.3); Neutrophil # 4.3 K/mm3 (1.3-6.0); Neutrophil % 73.2 % (42-75.0); Platelet Count 196 K/mm3 (150-450); Red Blood Count 3.58 M/mm3 (4.7-6.0); Red Cell Distribution Width 14.3 % (11.5-14.0); White Blood Count 5.8 K/mm3 (4.0-10.5)
[2019-02-11 18:04] LABS: Prothrombin Time (Patient) 11.9 Seconds (9.1-10.7)
[2019-02-11 18:05] LABS: INR 1.21 INR (0.92-1.08); Partial Thrombolplastin Time 25.7 Seconds (24-32)
[2019-02-11 18:13] LABS: Anion Gap 12.7 mmol/L (6.8-13.8); BUN/Creatinine Ratio 14.1 (9.0-21.6); Bilirubin, Total 0.6 mg/dL (0.0-1.1); CRP 2.3 mg/dL (0.0-0.9); Ca. Corrected For Albumin 8.9 mg/dL (8.4-10.2); Calcium * 8.4 mg/dL (7.9-10.9); Carbon Dioxide 26.9 mmol/L (24-32.6); Potassium 3.6 mmol/L (3.4-4.6); Troponin I 0.052 ng/mL (0.00-0.10)
[2019-02-11] MEDS ORDERED: FUROSEMIDE 10 MG/ML VIAL IV ONE (18:35)
[2019-02-11] MEDS ORDERED: DILTIAZEM HCL 5 MG/ML VIAL IV ONE (18:51)
--- NOTE | 2019-02-11 19:34 | ERNOTE ---
Chest Pain/Cardiac HPI Date of Service: 02/11/19 Chief Complaint: Tachycardia Time Seen by Provider: 02/11/19 17:21 Source: patient, family Exam Limitations: no limitations Immunizations: IMMUNIZATION HX Immunizations Up to Date Yes History of Influenza Vaccine Yes Hx Pneumococcal Vaccination Yes Allergies/Adverse Reactions: Allergies No Known Allergies Allergy (Verified 02/10/19 13:12) Home Medications: HOME MEDICATIONS Nitroglycerin 0.4 mg SUBLINGUAL Q5M PRN 01/13/15 [Last Taken Unknown] acetaminophen 500 mg tablet 500 mg PO QID PRN 12/03/18 [Last Taken Unknown] bisacodyl 10 mg rectal suppository 10 mg [place] DAILY PRN 12/03/18 [Last Taken Unknown] ipratropium-albuterol 0.5 mg-3 mg(2.5 mg base)/3 mL nebulization soln 3 ml IH .COMPLEX 12/03/18 [Last Taken Unknown] clopidogrel 75 mg tablet 75 mg PO DAILY #90 tab 12/10/18 [Last Taken Unknown] isosorbide mononitrate ER 30 mg tablet,extended release 24 hr 30 mg PO DAILY #90 tab 12/10/18 [Last Taken Unknown] multivitamin tablet 1 tab PO DAILY #90 tab 12/10/18 [Last Taken Unknown] pantoprazole 40 mg tablet,delayed release 40 mg PO DAILY #90 tab 12/10/18 [Last Taken Unknown] simvastatin 40 mg tablet 40 mg PO HS #90 tab 12/10/18 [Last Taken Unknown] tamsulosin 0.4 mg capsule 0.4 mg PO DAILY@1800 #90 cap 12/10/18 [Last Taken Unknown] metoprolol succinate ER 25 mg tablet,extended release 24 hr 25 mg PO DAILY tab 02/10/19 [Last Taken Unknown] Narrative: patient presents to ed withc/o sob cough and irregular heart rate Timing: constant, getting worse Severity/Quality: moderate Location: other - no reported chest pain Activities at Onset: none Modifying Factors - Improves: Present: coughing Modifying Factors - Worsens: Present: movement Nitro Today/Relief: no nitro taken today Aspirin Treatment Today: no aspirin today Associated Symptoms: Present: cough, palpitations Prior Chest Pain/Cardiac Workup: Reports: no prior cardiac workup Prior Treatment: Reports: recently seen, treated by physician Review of Systems - Review of Systems Constitutional: Present: See HPI, weakness EYE: Present: no symptoms reported ENT: Present: no symptoms reported Respiratory: Present: shortness of breath, cough, orthopnea Cardiology: Present: no symptoms reported Gastrointestinal/Abdominal: Present: no symptoms reported Genitourinary: Present: no symptoms reported Musculoskeletal: Present: no symptoms reported Skin: Present: no symptoms reported Neurological: Present: no symptoms reported, pre-existing deficit Endocrine: Present: no symptoms reported Hematologic/Lymphatic: Present: no symptoms reported Psych: Present: no symptoms reported All Other Systems: All systems neg except as marked Medical History (Updated 02/10/19 @ 14:10 by Roverto Castelan MD) Unspecified lack of coordination (Chronic) BPH (benign prostatic hyperplasia) (Chronic) Dysphagia (Chronic) Muscle weakness (generalized) (Chronic) 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 Echo. 08/17/2018. EF 40%. Apical and septal akinesis. Mild concentric LVH. Left atrium moderately to severely dilated. Pulmonary hypertension and diastolic dysfunction. Mild tricuspid regurgitation. Right ventricular systolic pressure 42 mmHg. Mild valvular aortic stenosis. Mild aortic regurgitation. Mild pulmonic regurgitation. Myocardial infarction Onset Date: ~2007 Surgical History: Surgical History (Updated 10/08/18 @ 16:08 by Mayur Layne DO) Aortic valve replaced (Chronic) History of artificial heart valve (Resolved) Onset Date: ~2015 H/O heart artery stent Onset Date: ~2007 Hx of appendectomy Onset Date: ~1977 Family History: Family History (Updated 08/16/18 @ 08:48 by Naomy Chu RN) Father Emphysema of lung Mother Heart disease Social History: (Last Updated 02/10/19 @ 14:11 by Roverto Castelan MD) Social History: senior living: Yes senior living comment: [facility] household members: spouse Tobacco: Smoking Status: Former smoker Alcohol: alcohol intake: former Substance Use: substance use type: does not use Physical Exam - Physical Exam General Appearance: Present: mild distress, anxious Head Exam: Present: normal inspection, no evidence of injury Eye Exam: Normal inspection: bilateral, PERRL: bilateral, EOMI: bilateral Ears, Nose, Throat: Present: normal ENT inspection, normal pharynx Neck: Present: normal inspection, nontender Respiratory: Present: no respiratory distress, normal breath sounds, no accessory muscle use, chest nontender, rales, rhonchi Cardiovascular/Chest: Present: irregularly irregular Peripheral Pulses: N=norm/S=strong/W=weak/B=bound/A=absent: Carotid (R): Normal, Carotid (L): Normal, Radial (R): Normal, Radial (L): Normal, Femoral (R): Normal, Femoral (L): Normal, Dorsalis-pedis (R): Normal, Dorsalis-pedis (L): Normal Gastrointestinal/Abdominal: Present: normal bowel sounds, no organomegaly Back Exam: Present: normal inspection, normal range of motion, no CVA tenderness, no vertebral tenderness Extremity Exam: Present: extremity edema Neurological Exam: Present: facial droop, motor weakness, other - preexisting flaccid paralysis left side Skin Exam: Present: normal color, warm/dry Lymphatic Exam: Present: no adenopathy Progress - Date and Time Seen: Date and Time: 02/11/19 19:31 condition unchanged - Results and Orders Patient's Lab Results:: I have reviewed the patient's lab results. - Vital Signs Patient's Vital Signs:: I have reviewed the patient's vital signs. Vital Signs: Vital Signs 02/11/19 17:07 02/11/19 17:35 02/11/19 19:04 Temperature 37.1 C Pulse Rate 121 H 104 H 103 H Respiratory Rate 17 Blood Pressure 129/92 H 101/69 O2 Sat by Pulse Oximetry 94 02/11/19 19:07 Temperature Pulse Rate 102 H Respiratory Rate Blood Pressure 109/86 O2 Sat by Pulse Oximetry - EKG EKG #1 EKG: atrial fibrillation - X-Ray X-Ray #1 X-Ray: chest Interpretation: Interp. by wa - pulmonary edema - Progress/Reassessment Chief Complaint: Tachycardia Progress:: Improved - Transfer of Care Expected Disposition: Admit Plan - Plan Plan: case discussed with dr layne admdanuta to hospital chf, new onset atrial fibrillation Departure Clinical Impression: Atrial fibrillation with rapid ventricular response, Congestive heart failure (CHF) - Departure Disposition: Short Term Hospital Inpatient Condition: Stable
[2019-02-11] MEDS ORDERED: NORMAL SALINE 1,000 ML IV PRN (19:35)
[2019-02-11] MEDS ORDERED: BISACODYL 10 MG SUPP.RECT RC PRN (20:39)
[2019-02-11] MEDS ORDERED: NITROGLYCERIN 0.4 MG/TAB BTL SL PRN (20:39)
[2019-02-11] MEDS ORDERED: ACETAMINOPHEN 500 MG TABLET PO PRN (20:39)
[2019-02-11] MEDS ORDERED: ALBUTEROL SULFATE/IPRATROPIUM 3 ML NEBU IH SCH (20:45)
[2019-02-11] MEDS ORDERED: FUROSEMIDE 10 MG/ML VIAL IV SCH (21:00)
--- NOTE | 2019-02-11 21:07 | HP ---
Chief Complaint - Chief Complaint Date of Service: 02/11/19 Time of Service: 20:30 Chief Complaint: dyspnea, edema, weakness History of Present Illness: Lonnie Rosas is a 78-year-old male patient of Dr. Roverto Han MD, who was at home and developed shortness of breath and weakness. He is not able to assist with his transferring as well and his brought him to the hospital and there private vehicle. On arrival he was found to be in atrial fib with RVR, had inspiratory rales and tachypnea with labored breathing. 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 He was in atrial fib with RVR with rate in the low 100s. He was placed on oxygen, and IV was established, he was given 60 mg of furosemide IV push. And a Fowler catheter was placed. He has diuresed significantly since then. I came to see him this evening about an hour after his admission and he is no longer having labored breathing. I do not hear any rales, rhonchi, wheezing and he is no longer tachypneic. He still has some edema in the lower extremities that is pitting to about two thirds up the [place]. His neck veins are not distended and his HJR at 30 degrees is negative. He has excellent renal function and adequate blood pressure and so he has been perfusing his kidneys well and diuresing aggressively. He has had a fairly quick turnaround. We will monitor him through the night and I will repeat his lab work tomorrow morning. The chest x- ray did show cardiomegaly with increased pulmonary vascular congestion suggestive of CHF. His BNP is greater than 6000. Troponin is negative. Electrolytes are essentially normal. I will add a low-dose of an LIAM inhibitor for his CHF. Will saline lock his IV. 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 Echo. 08/17/2018. EF 40%. Apical and septal akinesis. Mild concentric LVH. Left atrium moderately to severely dilated. Pulmonary hypertension and diastolic dysfunction. Mild tricuspid regurgitation. Right ventricular systolic pressure 42 mmHg. Mild valvular aortic stenosis. Mild aortic regurgitation. Mild pulmonic regurgitation. Myocardial infarction Onset Date: ~2007 Surgical History: Surgical History (Updated 10/08/18 @ 16:08 by Mayur Layne DO) Aortic valve replaced (Chronic) History of artificial heart valve (Resolved) Onset Date: ~2015 H/O heart artery stent Onset Date: ~2007 Hx of appendectomy Onset Date: ~1977 Family History: Family History (Updated 08/16/18 @ 08:48 by Naomy Chu RN) Father Emphysema of lung Mother Heart disease Social History: (Last Updated 02/11/19 @ 20:23 by Tabitha Denis RN) Social History: snf: Yes snf comment: [facility] household members: spouse Tobacco: Smoking Status: Former smoker Alcohol: alcohol intake: former Substance Use: substance use type: does not use Dietary Habits: well-balanced diet: daily or most days Personal Safety: do you feel safe at home: Yes Review Of Systems (GEN) - Review of Systems Generalized/Overall Review: Present: Weakness EENTM: Present: No Symptoms Reported Respiratory: Present: Cough, Shortness of Breath, Orthopnea, Wheezing Cardiac: Present: Palpitations Abdominal: Present: No Symptoms Reported Genitourinary: Present: No Symptoms Reported Musculoskeletal: Present: No Symptoms Reported Neurological: Present: Weakness, Pre-existing Deficit - Right hemiparesis and expressive aphasia Skin: Present: No Symptoms Reported Endocrine: Present: No Symptoms Reported Immunizations: IMMUNIZATION HX Immunizations Up to Date Yes History of Influenza Vaccine Yes Hx Pneumococcal Vaccination Yes Allergies/Adverse Reactions: Allergies Allergy/AdvReac Type Severity Reaction Status Date / Time No Known Allergies Allergy Verified 02/11/19 20:23 Home Medications: HOME MEDICATIONS Nitroglycerin 0.4 mg SUBLINGUAL Q5M PRN 01/13/15 [Last Taken Unknown] acetaminophen 500 mg tablet 500 mg PO QID PRN 12/03/18 [Last Taken Unknown] bisacodyl 10 mg rectal suppository 10 mg NE DAILY PRN 12/03/18 [Last Taken Unknown] ipratropium-albuterol 0.5 mg-3 mg(2.5 mg base)/3 mL nebulization soln 3 ml IH .COMPLEX 12/03/18 [Last Taken Unknown] clopidogrel 75 mg tablet 75 mg PO DAILY #90 tab 12/10/18 [Last Taken Unknown] isosorbide mononitrate ER 30 mg tablet,extended release 24 hr 30 mg PO DAILY #90 tab 12/10/18 [Last Taken Unknown] multivitamin tablet 1 tab PO DAILY #90 tab 12/10/18 [Last Taken Unknown] pantoprazole 40 mg tablet,delayed release 40 mg PO DAILY #90 tab 12/10/18 [Last Taken Unknown] simvastatin 40 mg tablet 40 mg PO HS #90 tab 12/10/18 [Last Taken Unknown] tamsulosin 0.4 mg capsule 0.4 mg PO DAILY@1800 #90 cap 12/10/18 [Last Taken Unknown] metoprolol succinate ER 25 mg tablet,extended release 24 hr 25 mg PO DAILY tab 02/10/19 [Last Taken Unknown] Exam - Exam Vital Signs: Vital Signs - Last Taken Temp 36.3 C 02/11/19 20:26 Pulse 85 02/11/19 20:26 Resp 16 02/11/19 20:26 BP 114/84 02/11/19 20:26 Pulse Ox 98 02/11/19 20:26 Constitutional: Present: Alert, Oriented x3, Cooperative, Well developed, Well nourished, No distress, Elderly, Obese ENT Exam: Present: normal ENT inspection, hearing grossly normal, pharynx normal Eye Exam: bilateral eye: normal inspection, PERRL, EOMI Neck: Present: non-tender, limited range of motion Back Exam: Present: normal inspection, no CVA tenderness, no vertebral tenderness Breasts: Present: Nontender Respiratory: Present: chest non-tender, lungs clear, normal breath sounds, no respiratory distress, no accessory muscle use - He is much improved from findings in ER Cardiovascular/Chest: Present: normal peripheral pulses, no JVD, tachycardia, irregularly irregular, edema Peripheral Pulses: carotid (R): 2+, carotid (L): 2+, radial (R): 2+, radial (L): 2+ Abdomen: Present: Normal bowel sounds, soft, nontender, nondistended /Rectal: Present: Exam deferred Extremity: Present: normal range of motion, non-tender, normal inspection, lower extremity edema Skin Exam: Present: normal color, warm/dry, no cyanosis Lymphatic: Present: no adenopathy Neurologic: Present: alert, normal mood/affect, abnormal gait, motor weakness - Right side Appearance: Present: appropriate appearance, appropriate insight, no memory impairment Eye contact: Present: cooperative, good eye contact. Absent: normal speech Thoughts: Present: normal thought pattern, no apparent hallucination Diagnostic Studies: Abnormal Lab Results 02/11/19 02/11/19 02/11/19 Range/Units 17:45 17:45 17:45 RBC 3.58 L (4.7-6.0) M/mm3 Hgb 12.3 L (13.5-18.0) gm/dL Hct 36.8 L (42.0-52.0) % MCV 102.8 H (78-100) fl MCH 34.4 H (27-31) pg RDW 14.3 H (11.5-14.0) % Lymphocytes % 12.7 L (20-51) % Monocytes % 11.7 H (0.0-9) % Lymphocytes # 0.74 L (1.5-3.5) k/mm3 PT 11.9 H (9.1-10.7) Seconds INR (Anticoag Therapy) 1.21 H (0.92-1.08) INR pCO2 (35.0-48.0) mmHg pO2 (83.0-108.0) mmHg ABG pH (7.35-7.45) ABG O2 Sat (Measured) (94.0-98.0) % Random Glucose 130 H (70-110) mg/dL C-Reactive Prot, Quant 2.3 H (0.0-0.9) mg/dL B-Natriuretic Peptide 6014 H (5-650) pg/mL Total Protein 6.0 L (6.2-8.2) gm/dL Albumin 3.0 L (3.4-5.0) gm/dl 02/11/19 Range/Units 18:12 RBC (4.7-6.0) M/mm3 Hgb (13.5-18.0) gm/dL Hct (42.0-52.0) % MCV (78-100) fl MCH (27-31) pg RDW (11.5-14.0) % Lymphocytes % (20-51) % Monocytes % (0.0-9) % Lymphocytes # (1.5-3.5) k/mm3 PT (9.1-10.7) Seconds INR (Anticoag Therapy) (0.92-1.08) INR pCO2 29.8 L (35.0-48.0) mmHg pO2 109.1 H (83.0-108.0) mmHg ABG pH 7.49 H (7.35-7.45) ABG O2 Sat (Measured) 98.4 H (94.0-98.0) % Random Glucose (70-110) mg/dL C-Reactive Prot, Quant (0.0-0.9) mg/dL B-Natriuretic Peptide (5-650) pg/mL Total Protein (6.2-8.2) gm/dL Albumin (3.4-5.0) gm/dl Laboratory Results WBC 5.8 K/mm3 (4.0-10.5) 02/11/19 17:45 RBC 3.58 M/mm3 (4.7-6.0) L 02/11/19 17:45 Hgb 12.3 gm/dL (13.5-18.0) L 02/11/19 17:45 Hct 36.8 % (42.0-52.0) L 02/11/19 17:45 MCV 102.8 fl (78-100) H 02/11/19 17:45 MCH 34.4 pg (27-31) H 02/11/19 17:45 MCHC 33.4 g/dl (32-36) 02/11/19 17:45 RDW 14.3 % (11.5-14.0) H 02/11/19 17:45 Plt Count 196 K/mm3 (150-450) 02/11/19 17:45 MPV 9.7 fl (8-11.3) 02/11/19 17:45 Immature Gran % (Auto) 0.30 % (0.001-0.429) 02/11/19 17:45 Immature Gran # (Auto) 0.02 K/mm3 (0.000-0.0310) 02/11/19 17:45 73.2 % (42-75.0) 02/11/19 17:45 12.7 % (20-51) L 02/11/19 17:45 11.7 % (0.0-9) H 02/11/19 17:45 1.2 % (0.0-3.0) 02/11/19 17:45 0.9 % (0.0-1.0) 02/11/19 17:45 Nucleated RBC % 0.0 k/mm3 (0-1) 02/11/19 17:45 4.3 K/mm3 (1.3-6.0) 02/11/19 17:45 0.74 k/mm3 (1.5-3.5) L 02/11/19 17:45 0.7 k/mm3 (0.0-1.0) 02/11/19 17:45 0.1 k/mm3 (0.0-0.7) 02/11/19 17:45 Absolute Basophils 0.1 k/mm3 (0.0-0.1) 02/11/19 17:45 PT 11.9 Seconds (9.1-10.7) H 02/11/19 17:45 INR (Anticoag Therapy) 1.21 INR (0.92-1.08) H 02/11/19 17:45 PTT ([place]) 25.7 Seconds (24-32) 02/11/19 17:45 pCO2 29.8 mmHg (35.0-48.0) L 02/11/19 18:12 pO2 109.1 mmHg (83.0-108.0) H 02/11/19 18:12 HCO3 22.2 mmol/L (21.0-28.0) 02/11/19 18:12 Total CO2 23.1 mmol/L (19.0-24.0) 02/11/19 18:12 Base Excess 0.0 mmol/L (-2.0-3.0) 02/11/19 18:12 ABG pH 7.49 (7.35-7.45) H 02/11/19 18:12 ABG O2 Sat (Measured) 98.4 % (94.0-98.0) H 02/11/19 18:12 Sodium 139 mmol/L (132-142) 02/11/19 17:45 139 mmol/L (130-142) 02/11/19 17:45 Potassium 3.6 mmol/L (3.4-4.6) 02/11/19 17:45 Chloride 103 mmol/L (97-106) 02/11/19 17:45 Carbon Dioxide 26.9 mmol/L (24-32.6) 02/11/19 17:45 12.7 mmol/L (6.8-13.8) 02/11/19 17:45 BUN 12 mg/dL (6-23) 02/11/19 17:45 0.85 mg/dL (0.4-1.4) 02/11/19 17:45 Est GFR (Non-Af Amer) 92 mL/min (60-130) 02/11/19 17:45 14.1 (9.0-21.6) 02/11/19 17:45 130 mg/dL (70-110) H 02/11/19 17:45 Calcium 8.4 mg/dL (7.9-10.9) 02/11/19 17:45 Calcium Adj for Albumin 8.9 mg/dL (8.4-10.2) 02/11/19 17:45 0.6 mg/dL (0.0-1.1) 02/11/19 17:45 AST 20 U/L (0-48) 02/11/19 17:45 ALT 19 U/L (19-67) 02/11/19 17:45 69 U/L (50-170) 02/11/19 17:45 0.052 ng/mL (0.00-0.10) 02/11/19 17:45 C-Reactive Prot, Quant 2.3 mg/dL (0.0-0.9) H 02/11/19 17:45 B-Natriuretic Peptide 6014 pg/mL (5-650) H 02/11/19 17:45 6.0 gm/dL (6.2-8.2) L 02/11/19 17:45 3.0 gm/dl (3.4-5.0) L 02/11/19 17:45 Assessment/Plan - Narrative Narrative: 1. Continuous cardiac monitoring through the night 2. Saline lock IV 3. Recheck lab tomorrow morning 4. Have physical therapy evaluate in the morning 5. Diuresis 1 more time with furosemide 6. Fowler catheter to dependent drainage per patient request (difficult for him to get up because of his previous stroke) 7. Add LIAM inhibitor lisinopril 5 mg 1 p.o. daily 8. I changed his admission status to observation - Assessment/Plan (1) Congestive heart failure (CHF) Problem: Acute (2) Atrial fibrillation with rapid ventricular response Problem: Acute (3) History of CVA (cerebrovascular accident) Problem: Chronic (4) Speech abnormality Problem: Chronic Qualifiers:
[2019-02-11] MEDS: LISINOPRIL 5 MG TABLET PO SCH (21:14)
[2019-02-12] MEDS ORDERED: FUROSEMIDE 10 MG/ML VIAL IV ONE (01:00)
[2019-02-12 05:46] LABS: Hematocrit 39.1 % (42.0-52.0); Hemoglobin 12.8 gm/dL (13.5-18.0); Mean Cell Volume 103.7 fl (78-100); Mean Corpuscular Hgb Conc 32.7 g/dl (32-36); Mean Platelet Volume 9.6 fl (8-11.3); Neutrophil # 4.1 K/mm3 (1.3-6.0); Neutrophil % 69.8 % (42-75.0); Platelet Count 209 K/mm3 (150-450); Red Blood Count 3.77 M/mm3 (4.7-6.0); Red Cell Distribution Width 14.6 % (11.5-14.0); White Blood Count 5.8 K/mm3 (4.0-10.5)
[2019-02-12 06:01] LABS: Albumin * 3.2 gm/dl (3.4-5.0); Anion Gap 11.7 mmol/L (6.8-13.8); BUN/Creatinine Ratio 16.5 (9.0-21.6); Bilirubin, Total 0.6 mg/dL (0.0-1.1); Ca. Corrected For Albumin 9.3 mg/dL (8.4-10.2); Carbon Dioxide 31.7 mmol/L (24-32.6); Magnesium 1.7 mg/dL (1.2-2.8); Potassium 3.4 mmol/L (3.4-4.6); Total Protein 6.4 gm/dL (6.2-8.2)
[2019-02-12] MEDS ORDERED: ALBUTEROL SULFATE/IPRATROPIUM 3 ML NEBU IH PRN (07:15)
[2019-02-12] MEDS ORDERED: ISOSORBIDE MONONITRATE 30 MG TAB.SR.24H PO SCH (09:00)
[2019-02-12] MEDS ORDERED: MULTIVITAMINS 1 CAP CAPSULE PO SCH (09:00)
[2019-02-12] MEDS ORDERED: FUROSEMIDE 40 MG TABLET PO SCH (09:00)
[2019-02-12] MEDS ORDERED: METOPROLOL SUCCINATE 25 MG TABLET.SA PO SCH (09:00)
[2019-02-12] MEDS ORDERED: FUROSEMIDE 10 MG/ML VIAL IV SCH (09:00)
[2019-02-12] MEDS ORDERED: CLOPIDOGREL BISULFATE 75 MG TABLET PO SCH (09:00)
[2019-02-12] MEDS ORDERED: PANTOPRAZOLE SODIUM 40 MG TABLET.EC PO SCH (09:00)
--- NOTE | 2019-02-12 09:31 | DS ---
(1) Congestive heart failure (CHF) Problem: Acute Qualifiers: Heart failure type: high output Qualified Code(s): I50.83 - High output heart failure (2) Atrial fibrillation with rapid ventricular response Problem: Acute (3) History of CVA (cerebrovascular accident) Problem: Chronic (4) Speech abnormality Problem: Chronic Qualifiers: Speech disturbance type: slurred speech Qualified Code(s): R47.81 - Slurred speech Date of Discharge:: 02/12/19 Description of Stay: Lonnie Rosas is a 78-year-old male who presented to the emergency room with CHF and with atrial fibrillation and rapid ventricular response. He has had a previous left hemispheric stroke affecting broke his speech area and he has partial expressive aphasia and some slurred speech. Chest x-ray showed cardiomegaly with pulmonary vascular congestion and has significant edema. He had increased JVD. He was given 60 mg of furosemide in the ER. He has excellent kidney function and pressure was normal and so he diuresed very quickly. I saw him in our after he came to the medical floor and he had no signs or symptoms of congestive failure at that time. The rales were gone. There is no JVD and HJR was only weakly positive at 30 degrees. He did have edema to the knees still last night. He received another 60 mg of Lasix at 1:00 this morning. He has lost 2.7 kg and measured urine output has been 4325cc since emergency room. His examination this morning with him sitting upright shows no JVD and HJR as negative. He has some mild edema in the left lower extremity at the ankle and foot only now. All the rest of the edema is gone. He is responded very well to diuresis. He no longer is needs oxygen. He had requested a Fowler catheter to be placed with a diuresis last night and it was placed. I have given him another 40 mg of Lasix p.o. this morning and discontinued his Fowler catheter and his IV. He will be discharged to home and his disposition is improved and his prognosis is fair. Procedures Performed: none Results and Findings: Lab Pending Results 02/11/19 17:45: Sodium 139, Plasma Sodium 139, Potassium 3.6, Chloride 103, Carbon Dioxide 26.9, Anion Gap 12.7, BUN 12, Creatinine 0.85, Est GFR (Non-Af Amer) 92, BUN/Creatinine Ratio 14.1, Random Glucose 130 H, Calcium 8.4, Calcium Adj for Albumin 8.9, Total Bilirubin 0.6, AST 20, ALT 19, Alkaline Phosphatase 69, Troponin I 0.052, C-Reactive Prot, Quant 2.3 H, B-Natriuretic Peptide 6014 H, Total Protein 6.0 L, Albumin 3.0 L 02/11/19 17:45: WBC 5.8, RBC 3.58 L, Hgb 12.3 L, Hct 36.8 L, MCV 102.8 H, MCH 34.4 H, MCHC 33.4, RDW 14.3 H, Plt Count 196, MPV 9.7, Immature Gran % (Auto) 0.30, Immature Gran # (Auto) 0.02, Neutrophils % 73.2, Lymphocytes % 12.7 L, Monocytes % 11.7 H, Eosinophils % 1.2, Basophils % 0.9, Nucleated RBC % 0.0, Neutrophils # 4.3, Lymphocytes # 0.74 L, Monocytes # 0.7, Eosinophils # 0.1, Absolute Basophils 0.1 02/11/19 17:45: PT 11.9 H, INR (Anticoag Therapy) 1.21 H, PTT ([place]) 25.7 02/11/19 18:12: pCO2 29.8 L, pO2 109.1 H, HCO3 22.2, Total CO2 23.1, Base Excess 0.0, ABG pH 7.49 H, ABG O2 Sat (Measured) 98.4 H 02/12/19 05:35: WBC 5.8, RBC 3.77 L, Hgb 12.8 L, Hct 39.1 L, MCV 103.7 H, MCH 34.0 H, MCHC 32.7, RDW 14.6 H, Plt Count 209, MPV 9.6, Immature Gran % (Auto) 0.70 H, Immature Gran # (Auto) 0.04 H, Neutrophils % 69.8, Lymphocytes % 13.6 L, Monocytes % 13.1 H, Eosinophils % 2.1, Basophils % 0.7, Nucleated RBC % 0.0, Neutrophils # 4.1, Lymphocytes # 0.79 L, Monocytes # 0.8, Eosinophils # 0.1, Absolute Basophils 0.0 02/12/19 05:35: Sodium 142, Plasma Sodium 142, Potassium 3.4, Chloride 102, Carbon Dioxide 31.7, Anion Gap 11.7, BUN 14, Creatinine 0.85, Est GFR (Non-Af Amer) 92, BUN/Creatinine Ratio 16.5, Random Glucose 109, Calcium 9.0, Calcium Adj for Albumin 9.3, Magnesium 1.7, Total Bilirubin 0.6, AST 17, ALT 18 L, Alkaline Phosphatase 70, Total Protein 6.4, Albumin 3.2 L Discharge Location: Home Disposition: Home Health Service Home Health Agency: [facility] Condition: Stable Face to Face Encounter completed per [facility] Guidelines: No - Continuation of home health Discharge Activity: Activity as tolerated Discharge Diet: Low salt Referrals: Roverto Castelan MD [Primary Care Provider] - Additional Patient Instructions (free text): Please fax discharge summary and orders to [facility], ongoing patient. Call Report to [facility] See Dr. Han within 2 weeks for follow-up. Prescriptions (Any new or edited meds): Furosemide [Lasix] 40 mg PO Q2D #30 tab Lisinopril [Zestril] 5 mg PO DAILY #30 tab Complete Home Medications List: Complete Home Medication List: Nitroglycerin 0.4 mg SUBLINGUAL Q5M PRN 01/13/15 acetaminophen 500 mg tablet 500 mg PO QID PRN 12/03/18 bisacodyl 10 mg rectal suppository 10 mg IN DAILY PRN 12/03/18 ipratropium-albuterol 0.5 mg-3 mg(2.5 mg base)/3 mL nebulization soln 3 ml IH .COMPLEX 12/03/18 clopidogrel 75 mg tablet 75 mg PO DAILY #90 tab 12/10/18 isosorbide mononitrate ER 30 mg tablet,extended release 24 hr 30 mg PO DAILY #90 tab 12/10/18 multivitamin tablet 1 tab PO DAILY #90 tab 12/10/18 pantoprazole 40 mg tablet,delayed release 40 mg PO DAILY #90 tab 12/10/18 simvastatin 40 mg tablet 40 mg PO HS #90 tab 12/10/18 tamsulosin 0.4 mg capsule 0.4 mg PO DAILY@1800 #90 cap 12/10/18 metoprolol succinate ER 25 mg tablet,extended release 24 hr 25 mg PO DAILY tab 02/10/19 Furosemide [Lasix] 40 mg PO ONCE tab 02/12/19 Furosemide [Lasix] 40 mg PO Q2D #30 tab 02/12/19 Lisinopril [Zestril] 5 mg PO DAILY #30 tab 02/12/19
[2019-02-12] MEDS: LISINOPRIL 5 MG TABLET PO SCH (10:04)
[2019-02-12 14:13] VITALS: BP 90/62
[2019-02-12] MEDS ORDERED: TAMSULOSIN HCL 0.4 MG CAP.SR.24H PO SCH (18:00)
== END 2019-02-12 12:15 | disposition home health service (06) ==
LOC: MS 17:07 → ER 17:07 → OBSVTOIN 19:08 → INTOOBSV 19:08 → MS 20:15
PROVIDERS: ADMIT Family Medicine; ATTEND Allergy & Immunology
CPT/HCPCS: 36415; 36600; 71010; 71045; 80053; 82803; 83519; 83735; 83880; 84484; 85025; 85610; 85730; 86140; 87040; 93005; 94760; 96374; 96375; 97162; 99285; G0378